=== PATIENT | male | born 1965 | race Caucasian/White ===

== ENCOUNTER 2018-08-17 08:12 | Observation (INO) | payer OTHER ==
[2018-08-17] MEDS ORDERED: LR 1,000 ML IV ONE (08:26)
[2018-08-17] MEDS ORDERED: LIDOCAINE 1% 300 MG/30 ML SDV ONE (08:52)
[2018-08-17] MEDS ORDERED: BUPIVACAINE 0.5% 30 ML SDV ONE (08:53)
[2018-08-17] MEDS ORDERED: MIDAZOLAM 2 MG/2 ML VIAL IVP ONE (09:06)
--- NOTE | 2018-08-17 09:14 | PDANEPAE ---
ANE Past Medical History - Cardiovascular History Hx Hypertension: No Hx Arrhythmias: No Hx Chest Pain: No Hx Coronary Artery / Peripheral Vascular Disease: No Hx CHF / Valvular Disease: No Hx Palpitations: No - Pulmonary History Hx COPD: No Hx Asthma/Reactive Airway Disease: No Hx Recent Upper Respiratory Infection: No Hx Oxygen in Use at Home: No Hx Sleep Apnea: No Sleep Apnea Screening Result - Last Documented: Negative - Neurologic History Hx Cerebrovascular Accident: No Hx Seizures: No Hx Dementia: No - Endocrine History Hx Diabetes: No Hypothyroid: No Hyperthyroid: No - Renal History Hx Renal Disorders: No - Liver History Hx Hepatic Disorders: No - Neurological & Psychiatric Hx Hx Neurological and Psychiatric Disorders: Yes Neurological / Psychiatric History Comment: hx of depression 10 yrs ago when brother from cancer - Cancer History Hx Cancer: No - Congenital Disorder History Hx Congenital Disorders: No - GI History Hx Gastrointestinal Disorders: No - Other Health History Other Health History: wears glasses - Chronic Pain History Chronic Pain: No - Surgical History Prior Surgeries: n/a ANE Review of Systems Review of Systems: - Exercise capacity METS (RN): 4 METS ANE Patient History - Allergies Allergies/Adverse Reactions: No Known Allergies Allergy (Verified 08/16/18 16:58) - Home Medications Home Medications: NK [No Known Home Meds] 08/11/18 [Last Taken Unknown] - NPO status NPO Since - Liquids (Date): 08/17/18 NPO Since - Liquids (Time): 01:00 NPO Since - Solids (Date): 08/16/18 NPO Since - Solids (Time): 20:00 - Smoking Hx Smoking Status: Former smoker - Family Anes Hx Family Hx Anesthesia Complications: unknown ANE Labs/Vital Signs - Vital Signs Blood Pressure: 154/113 Heart Rate: 67 Respiratory Rate: 14 O2 Sat (%): 96 Height: 182.88 cm Weight: 90.718 kg ANE Physical Exam - Airway Neck exam: FROM Mallampati Score: Class 1 Mouth exam: normal dental/mouth exam - Pulmonary Pulmonary: no respiratory distress - Cardiovascular Cardiovascular: regular rate and rhythym - ASA Status ASA Status: I ANE Anesthesia Plan Anesthesia Plan: GA w LMA
--- NOTE | 2018-08-17 09:45 | PDHPUP ---
History & Physical Update H&P update statement: This history and physical update is based on an assessment of the patient which was completed after admission or registration (within 24 hours), but prior to the surgery/procedure. H&P update: H&P reviewed & patient examined, no change in patient's condition since H&P completed
[2018-08-17] MEDS ORDERED: HYDROCODONE/APAP 5/325 TAB PO PRN (09:46)
[2018-08-17] MEDS ORDERED: ONDANSETRON 4 MG/2 ML VIAL IVP PRN (09:46)
[2018-08-17] MEDS ORDERED: TEMAZEPAM 15 MG CAP PO PRN (09:46)
--- NOTE | 2018-08-17 09:46 | POSTOPPROG ---
Post Op Note Date of Operation: 08/17/18 Surgeon: Truong Chow Technical Director: none Anesthesiologist: Luciescjudson Anesthesia: LMA Pre-op Diagnosis: Umbilical hernia Post-op Diagnosis: same Procedure: Open repair with mesh Findings: 2.5 cm defect Inf/Abcess present in the surg proc area at time of surgery?: No EBL: Minimal Specimen(s): none
[2018-08-17] MEDS ORDERED: PROPOFOL 200 MG/20 ML VIAL ONE ×2 (09:48)
[2018-08-17] MEDS ORDERED: fentaNYL 250 MCG/5 ML INJ ONE (09:48)
[2018-08-17] MEDS ORDERED: LIDOCAINE 2% 5 ML SDV ONE (09:48)
[2018-08-17] MEDS ORDERED: LR 1,000 ML IV SCH (10:00)
[2018-08-17] MEDS ORDERED: KETOROLAC 30 MG/1 ML SDV ONE (10:53)
[2018-08-17] MEDS ORDERED: ONDANSETRON 4 MG/2 ML VIAL ONE (10:53)
[2018-08-17] MEDS ORDERED: DEXAMETHASONE 4 MG/ML VIAL ONE (10:53)
[2018-08-17] MEDS ORDERED: PROMETHAZINE HCL 25 MG/ML INJ IVP PRN (10:55)
[2018-08-17] MEDS ORDERED: oxyCODONE IR 5 MG TAB PO PRN (10:55)
[2018-08-17] MEDS ORDERED: fentaNYL 100 MCG/2 ML INJ IVP PRN (10:55)
[2018-08-17] MEDS ORDERED: NALOXONE HCL 0.4 MG/ML INJ IVP PRN (10:55)
--- NOTE | 2018-08-17 10:55 | POSTANESTH ---
Post Anesthetic Evaluation Cardiovascular Status: Normal, Stable Respiratory Status: Normal, Stable Level of Consciousness/Mental Status: Mildly Sleepy, Arousable Pain Control: Adequate, Prn Tx Ordered Nausea/Vomiting Control: Adequate, Prn Tx Ordered Complications Possibly Related to Anesthesia: None Noted
[2018-08-17] MEDS: KETOROLAC 15 MG/1 ML SDV IVP SCH ×3 (13:15→23:01)
--- NOTE | 2018-08-17 13:57 | GOP ---
DATE OF OPERATION: SURGEON: Truong Chow MD ANESTHESIOLOGIST: Dr. Murphy. PREOPERATIVE DIAGNOSIS: Umbilical hernia. POSTOPERATIVE DIAGNOSIS: Incarcerated umbilical hernia. PROCEDURE PERFORMED: Open umbilical hernia repair with mesh placement, 4.3 cm Ventralex hernia patch . FINDINGS: That of a 2.5 cm defect. ESTIMATED BLOOD LOSS: Less than 10 mL. INDICATIONS: This is a 52-year-old gentleman, who presents to the hospital for elective repair of sy mptomatic umbilical hernia. DESCRIPTION OF PROCEDURE: The patient was brought into the operating room. After induction of gener al LMA anesthesia in the supine position, his abdomen was prepped with chlorhexidine and draped steri chip. A time-out procedure was then performed according to institutional standards. Local anestheti c was infused in the skin and subcutaneous tissues of the umbilicus. An infraumbilical incision was made in a curvilinear fashion. This was deepened with electrocautery. The hernia was identified and the attachments to the umbilicus and the tissue were taken down with sharp and electrocautery dissection. After circumferentially clearing the fascia above and below the defect, an area was allowed for landing of the mesh 2 cm above and below the linear closure. The me sh was placed in, in a parachute technique with 0 Ethibond suture, and the fascia was reapproximated with 3 [id number] sutures. After ensuring a tension-free closure, hemostasis, needle, instrumen t and sponge counts were assured to be correct, the wound was closed in a layered fashion, reattachin g the umbilicus to the fascia and closing the wound using 3-0 Vicryl and 4-0 Monocryl. Dermabond was applied. The patient was awakened. LMA was removed. He was taken to the recovery room in stable c ondition with no immediate complications. COMPLICATIONS: None. /[id number]/MODL
[2018-08-18] MEDS: KETOROLAC 15 MG/1 ML SDV IVP SCH ×2 (05:20→11:09)
[2018-08-18 07:18] VITALS: BP 132/93
== END 2018-08-18 13:25 | disposition home or self-care (01) ==
LOC: F3N 08:12 → F3E 11:54
PROVIDERS: ADMIT Surgery; ATTEND Surgery
PROC: 0WUF0JZ Supplement Abdominal Wall with Synthetic Substitute, Open Approach (ICD-10-PCS; principal; 2018-08-17 09:30)
DX: K42.9 Umbilical hernia without obstruction or gangrene (principal)
CPT/HCPCS: 49585; G0378; C1781; J1100; J1885; J2250; J2405; J2704; J3010

== ENCOUNTER 2018-09-03 00:33 | Emergency (ER) | payer OTHER ==
[2018-09-03] MEDS ORDERED: VANCOMYCIN 1.5 GM in D5W 250 ML IV ONE (00:54)
[2018-09-03] MEDS ORDERED: NS 1,000 ML IV ONE (00:54)
--- NOTE | 2018-09-03 01:05 | EDPHY ---
H & P Stated Complaint: RECENT HERNIA SURGERY KOLE NOW WITH PAIN REDNESS AND SWELLING Time Seen by Provider: 09/03/18 00:40 HPI/ROS: HPI The patient presents with abdominal pain and redness. He is status post open ventral hernia repair with mesh by Dr. Chow performed on August 17. This was uncomplicated. Over the course of the last week he has had intermittent mild subjective fevers, sensation of abdominal fullness. 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 He drove across several bumpy roads and noticed that his abdomen was hurting him a bit. This morning, he noticed some redness around his belly button which progressed throughout the day today. He came directly to the ER from the airport. He does not have any nausea or vomiting, difficulty having a bowel movement or vomiting. REVIEW OF SYSTEMS 10 systems were reviewed and negative with the exception of the elements mentioned in the history of present illness. PMHx: Ventral hernia repair as above Soc Hx: PHYSICAL General Appearance: Alert, no distress Eyes: Pupils equal and round no pallor or injection ENT, Mouth: Mucous membranes moist Respiratory: There are no retractions, lungs are clear to auscultation Cardiovascular: Regular rate and rhythm Gastrointestinal: Umbilicus is deeply erythematous with some whitish fluid draining from center, there is a large amount of surrounding erythema, warmth, tenderness Neurological: A&O, moves all extremities Skin: Warm and dry, no rashes Musculoskeletal: Neck is supple non tender Extremities: symmetrical, full range of motion Psychiatric: Patient is oriented X 3, there is no agitation Source: Patient Exam Limitations: No limitations - Personal History Current Tetanus/Diphtheria Vaccine: Yes Current Tetanus Diphtheria and Acellular Pertussis (TDAP): Yes - Medical/Surgical History Hx Asthma: No Hx Chronic Respiratory Disease: No Hx Diabetes: No Hx Cardiac Disease: No Hx Renal Disease: No Hx Cirrhosis: No Hx Alcoholism: No Hx HIV/AIDS: No Hx Splenectomy or Spleen Trauma: No Other PMH: HERNIA - Social History Smoking Status: Former smoker Constitutional: Initial Vital Signs Temperature (C) 37.2 C 09/03/18 00:35 Heart Rate 92 09/03/18 00:35 Respiratory Rate 18 09/03/18 00:35 Blood Pressure 156/94 H 09/03/18 00:35 O2 Sat (%) 97 09/03/18 00:35 O2 Delivery Mode Room Air Allergies/Adverse Reactions: No Known Allergies Allergy (Verified 09/03/18 00:39) Home Medications: Medication Instructions Recorded Amoxicillin/Clavulanate Pot 875 mg PO BID #14 tab 09/03/18 [Augmentin 875 MG TAB (*)] Medical Decision Making - Diagnostics Imaging Results: CT abdomen pelvis with IV contrast demonstrates a peripherally enhancing fluid collection extending from the skin surface at the umbilicus into the abdominal cavity 5.1 x 4.5 x 4.6 cm with adjacent fat stranding consistent with abscess. Mild edema of the intra-abdominal cavity. Interpreted by direct Radiology. Imaging: I viewed and interpreted images myself Differential Diagnosis: 52-year-old man status post ventral hernia repair about 2 and half weeks ago presents with abdominal redness, tenderness, subjective fevers at home. Differential diagnosis includes abdominal wall cellulitis, postoperative abscess , postoperative hematoma. Plan for IV fluids, IV antibiotics, basic labs, blood culture, CT scan abdomen pelvis. Labs demonstrated leukocytosis. CT scan demonstrated intra-abdominal abscess. I consulted with Dr. Chow the on-call general surgeon who came to the emergency department to see the patient. He performed a bedside incision and drainage and placed a drain. The patient will be discharged with Augmentin and will have follow-up tomorrow in their clinic. He is happy with this plan. - Data Points Laboratory Results: Laboratory Results 09/03/18 01:05 09/03/18 01:05 09/03/18 09/03/18 01:05 01:05 WBC 13.69 10^3/uL H 10^3/uL (3.80-9.50) RBC 4.74 10^6/uL 10^6/uL (4.40-6.38) Hgb 14.1 g/dL g/dL (13.7-17.5) Hct 42.3 % % (40.0-51.0) MCV 89.2 fL fL (81.5-99.8) MCH 29.7 pg pg (27.9-34.1) MCHC 33.3 g/dL g/dL (32.4-36.7) RDW 11.7 % % (11.5-15.2) Plt Count 284 10^3/uL 10^3/uL (150-400) MPV 11.1 fL fL (8.7-11.7) Neut % (Auto) 75.3 % H % (39.3-74.2) Lymph % (Auto) 12.6 % L % (15.0-45.0) [place] % (Auto) 11.0 % % (4.5-13.0) Eos % (Auto) 0.4 % L % (0.6-7.6) Baso % (Auto) 0.4 % % (0.3-1.7) Nucleat RBC Rel Count 0.0 % % (0.0-0.2) Absolute Neuts (auto) 10.32 10^3/uL H 10^3/uL (1.70-6.50) Absolute Lymphs (auto) 1.73 10^3/uL 10^3/uL (1.00-3.00) Absolute Monos (auto) 1.50 10^3/uL H 10^3/uL (0.30-0.80) Absolute Eos (auto) 0.05 10^3/uL 10^3/uL (0.03-0.40) Absolute Basos (auto) 0.05 10^3/uL 10^3/uL (0.02-0.10) Absolute Nucleated RBC 0.00 10^3/uL 10^3/uL (0-0.01) Immature Gran % 0.3 % % (0.0-1.1) Immature Gran # 0.04 10^3/uL 10^3/uL (0.00-0.10) Sodium 137 mEq/L mEq/L (135-145) Potassium 4.4 mEq/L mEq/L (3.5-5.2) Chloride 102 mEq/L mEq/L (97-110) Carbon Dioxide 28 mEq/l mEq/l (22-31) Anion Gap 7 mEq/L mEq/L (6-14) BUN 14 mg/dL mg/dL (7-23) Creatinine 0.8 mg/dL mg/dL (0.7-1.3) Estimated GFR > 60 Glucose 118 mg/dL H mg/dL (70-100) Calcium 9.2 mg/dL mg/dL (8.5-10.4) Total Bilirubin 0.8 mg/dL mg/dL (0.1-1.4) AST 19 IU/L IU/L (17-59) ALT 35 IU/L IU/L (21-72) Alkaline Phosphatase 128 IU/L H IU/L (38-126) Total Protein 7.0 g/dL g/dL (6.3-8.2) Albumin 4.2 g/dL g/dL (3.5-5.0) Medications Given: Discontinued Medications Amoxicillin/Clavulanate Potassium (Augmentin 875mg) 875 mg PO EDNOW ONE PRN Reason: Protocol Stop: 09/03/18 03:23 Last Admin: 09/03/18 03:31 Dose: 875 mg Sodium Chloride (Ns) 1,000 mls @ 0 mls/hr IV EDNOW ONE; Wide Open PRN Reason: Protocol Stop: 09/03/18 00:55 Last Admin: 09/03/18 01:12 Dose: 1,000 mls Vancomycin HCl 1.5 gm/ (Dextrose) 250 mls @ 166.67 mls/hr IV EDNOW ONE PRN Reason: Protocol Stop: 09/03/18 02:23 Last Admin: 09/03/18 01:32 Dose: 250 mls Ketorolac Tromethamine (Toradol) 30 mg IVP EDNOW ONE Stop: 09/03/18 03:07 Last Admin: 09/03/18 03:07 Dose: 30 mg Departure - Departure Disposition: Home, Routine, Self-Care Clinical Impression: Surgical site infection, Abdominal wall cellulitis Condition: Good Instructions: Wound Infection (ED) Additional Instructions: Please take the antibiotic as prescribed. You can shower and use mild soap and water over the wound. Afterwards, cover the wound with a large bandage. If your worse in any way, you should return to the emergency department immediately. Otherwise please call your surgeon's office on Tuesday morning to arrange for follow-up appointment. Referrals: Aguila Saul [Primary Care Provider] - As per Instructions Truong Chow MD [Medical Doctor] - As per Instructions Prescriptions: Amoxicillin/Clavulanate Pot [Augmentin 875 MG TAB (*)] 875 mg PO BID #14 tab
[2018-09-03 01:31] LABS: PLATELET COUNT 284 10^3/uL (150-400)
[2018-09-03] MEDS ORDERED: IOHEXOL 300 mgI/ML (OMNIPAQUE) 150 ML BTL IV ONE (02:00)
[2018-09-03 02:51] VITALS: BP 138/86
[2018-09-03] MEDS ORDERED: KETOROLAC 30 MG/1 ML SDV ONE (03:02)
[2018-09-03] MEDS ORDERED: KETOROLAC 30 MG/1 ML SDV IVP ONE (03:06)
[2018-09-03] MEDS ORDERED: AMOXICILLIN/CLAVULANATE POT 875/125 MG TAB PO ONE (03:22)
--- NOTE | 2018-09-03 03:48 | GCON ---
[f rep st] CONSULTATION DATE OF CONSULTATION: 09/03/2018 REASON FOR EVALUATION: Umbilical abscess. REQUESTING PHYSICIAN: Dayanna Meléndez MD. HISTORY OF PRESENT ILLNESS: 52-year-old male status post open umbilical herniorrhaphy with Ventralex mesh on August 17, 2018. He had initial unremarkable postoperative course. He had some swelling in his umbilicus last Tuesday without associated redness or fevers. 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 No fevers or chills. No other specific concerns. CT imaging was ordered by the ED physician disclosing a large umbilical fluid collection. PAST MEDICAL HISTORY: None. PAST SURGICAL HISTORY: Umbilical herniorrhaphy. MEDICATIONS: None. ALLERGIES: No known drug allergies. SOCIAL: Noncontributory. 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 PHYSICAL EXAMINATION: VITAL SIGNS: Temperature 37, blood pressure 136/86, pulse 86, respirations 16. GENERAL: Patient is alert, appropriate, comfortable. Sunburned in appearance. HEART: Regular. LUNGS: Clear. ABDOMEN: Exquisite periumbilical tenderness with calor and erythema, with a tense umbilical abscess. EXTREMITIES: Unremarkable. PROCEDURE: The wound was anesthetized with 1% lidocaine. The incision was partially opened allowing for evacuation of a large quantity of purulence. A quarter-inch Cerulean drain was placed in the cavity and secured with 3-0 nylon sutures. IMPRESSION: Umbilical abscess status post umbilical herniorrhaphy. PLAN: Abscess has been adequately drained at bedside. Intravenous antibiotics were administered in the emergency room. He will complete a course of p.o. antibiotics. He will be seen in followup in office on Tuesday, assuming continued resolution, else will see back later today. We discussed the potential for mesh infection and role for explantation as a potential possibility as well. Wound care instructions were explained prior to leaving. /[id number]/MODL MTDD
== END 2018-09-03 03:36 | disposition home or self-care (01) ==
PROC: 0H97X0Z Drainage of Abdomen Skin with Drainage Device, External Approach (ICD-10-PCS; principal; 2018-09-03)
DX: T81.41XA Infection following a procedure, superficial incisional surgical site, initial encounter (principal); L02.211 Cutaneous abscess of abdominal wall
CPT/HCPCS: 96365; J1885; J3370; Q9967

== ENCOUNTER 2018-10-26 12:09 | Emergency (ER) | payer OTHER ==
[2018-10-26] MEDS ORDERED: NS 1,000 ML IV ONE ×2 (13:28)
--- NOTE | 2018-10-26 13:36 | EDPHY ---
H & P Time Seen by Provider: 10/26/18 12:59 HPI/ROS: HPI Bilateral forearm pain. 52-year-old male by private vehicle. 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 He reports that back in August he had a hernia surgery. This became infected. He has subsequently been on antibiotics for the last 8 weeks. Most recently he finished a 2 week course of cefuroxime on Tuesday. He presents to the emergency department with complaint of bilateral forearm pain. More so on the dorsal ulnar aspects of both forearms. He describes this as symmetrical. He reports that on Tuesday he was down in [place] if issue eating a car race. He was waving a flag and notice the discomfort on his way back from [place]. The discomfort has become persistently worse. He denies any history of trauma. No shortness of breath. Denies any asymmetric swelling. He also explains to me that about a week ago he was working on his truck and was bending down squatting and then standing up repeatedly. He reports after this he was unusually sore in both of his thighs for at least several days. Denies any dark colored urine. States that he did have some increased frequency with urination last night. ROS: Constitutional: No fever, no chills. As above. Eyes: No discharge. No changes in vision. ENT: No sore throat. No nasal congestion or rhinorrhea. Respiratory: No cough. No shortness of breath. Cardiac: No chest pain, no palpitations. Gastrointestinal: No abdominal pain, no vomiting, no diarrhea. Genitourinary: No hematuria. No dysuria. As above. Musculoskeletal: No back pain. No neck pain. As above. Skin: No rashes. Sunburn. Neurological: No headache. No focal weakness or altered sensation. Past medical history: Her a surgery. Otherwise no significant past medical history. 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 Drinks alcohol occasionally. No IV drugs or street drugs. Here by himself. Nonsmoker. Physical Exam: General Appearance: Alert, no distress. This patient is responding to questions appropriately and in full sentences. This patient appears well- hydrated and well-nourished. Eyes: Pupils equal and round no pallor or injection. No lid edema, erythema or injection. ENT, Mouth: Mucous membranes are mildly dry. Neurological: Motor sensory function is grossly intact. Cranial nerves are normal. Gait is normal. Skin: Warm and dry, no rashes. Musculoskeletal: Examination of both forms is significant for some tenderness specifically on palpation of the bilateral extensor carpi ulnaris musculature. The muscle compartments and both forearms are soft. Both his upper extremities are neurovascularly intact. There is no asymmetric swelling suggestive of DVT. Other than some mild sunburn on both forearms no rash. No associated ecchymosis. All joints in the bilateral upper extremities range without any significant pain or impingement. No other tenderness on palpation involving the long bones wrists and hands of the bilateral upper extremities. Extremities are symmetrical except noted. Psychiatric: No agitation. No depression. Database: EKG: Imaging: Procedures: Emergency department course: Triage vital signs reviewed. He is mildly hypertensive. Vital signs are otherwise normal. He is afebrile. Patient's presentation is consistent with post exercised induced muscle soreness. Of concern is possible rhabdomyolysis. CK, cannabis history for renal function and urinalysis to be evaluated. IV was placed. He will be started on IV normal saline with 1-2 L to be given over the next 1-2 hours. 3:40 p.m., the patient was re-evaluated, currently resting comfortably. His vital signs are unremarkable. He is feeling better. Results of chemistry panel are unremarkable. He was given a 1 time dose of IV Toradol for his forearm pain. He has no contraindications to NSAIDs. Creatinine is normal today. He was up and ambulatory to the bathroom to urinate. Results of his blood work and urinalysis discussed with him. He had some white cells in his urine. He denies any urinary tract infection symptoms. I have ordered a culture. He has not been febrile. Antibiotics will be held pending culture results. I discussed follow-up to retrieve his urine culture results. He feels comfortable going home at this time. I feel as form pain is likely secondary to an overuse syndrome with muscle strain. He feels comfortable being discharged. Follow-up and return to emergency department precautions reviewed with him. All of his questions were answered. He was discharged from the emergency department in good condition. Differential Diagnosis: The differential diagnosis on this patient includes but is not limited to myalgias secondary to overuse. Rhabdomyolysis, DVT, fracture, subluxation, dislocation, compartment syndrome unlikely. This represents a partial list of diagnoses considered. These considerations are based on history, physical exam , past history, reassessment and diagnostic testing. Smoking Status: Former smoker Constitutional: Initial Vital Signs Temperature (C) 36.9 C 10/26/18 12:15 Heart Rate 90 10/26/18 12:15 Respiratory Rate 18 10/26/18 12:15 Blood Pressure 158/89 H 10/26/18 12:15 O2 Sat (%) 96 10/26/18 12:15 O2 Delivery Mode Room Air Allergies/Adverse Reactions: No Known Allergies Allergy (Verified 10/26/18 12:14) Home Medications: Medication Instructions Recorded Oxycodone HCl 10/26/18 Medical Decision Making - Data Points Laboratory Results: Laboratory Results 10/26/18 14:00 10/26/18 10/26/18 15:35 14:00 Sodium 138 mEq/L mEq/L (135-145) Potassium 4.5 mEq/L mEq/L (3.5-5.2) Chloride 101 mEq/L mEq/L (97-110) Carbon Dioxide 24 mEq/l mEq/l (22-31) Anion Gap 13 mEq/L mEq/L (6-14) BUN 14 mg/dL mg/dL (7-23) Creatinine 0.8 mg/dL mg/dL (0.7-1.3) Estimated GFR > 60 Glucose 95 mg/dL mg/dL (70-100) Calcium 9.9 mg/dL mg/dL (8.5-10.4) Creatine Kinase 63 IU/L IU/L (0-224) Urine Color YELLOW Urine Appearance CLEAR Urine pH 7.0 (5.0-7.5) Ur Specific [place] 1.012 (1.002-1.030) Urine Protein NEGATIVE (NEGATIVE) Urine Ketones 1+ H (NEGATIVE) Urine Blood NEGATIVE (NEGATIVE) Urine Nitrate NEGATIVE (NEGATIVE) Urine Bilirubin NEGATIVE (NEGATIVE) Urine Urobilinogen NEGATIVE EU EU (0.2-1.0) Ur Leukocyte Esterase 1+ H (NEGATIVE) Urine RBC 1-3 /hpf /hpf (0-3) Urine WBC 10-15 /hpf H /hpf (0-3) Ur Epithelial Cells TRACE /lpf /lpf (NONE-1+) Urine Bacteria TRACE /hpf H /hpf (NONE SEEN) Urine Glucose NEGATIVE (NEGATIVE) Medications Given: Discontinued Medications Sodium Chloride (Ns) 1,000 mls @ 0 mls/hr IV EDNOW ONE; Wide Open PRN Reason: Protocol Stop: 10/26/18 13:29 Last Admin: 10/26/18 14:57 Dose: 1,000 mls Sodium Chloride (Ns) 1,000 mls @ 0 mls/hr IV EDNOW ONE; Wide Open PRN Reason: Protocol Stop: 10/26/18 13:29 Last Admin: 10/26/18 14:57 Dose: 1,000 mls Ketorolac Tromethamine (Toradol) 30 mg IVP EDNOW ONE Stop: 10/26/18 15:29 Last Admin: 10/26/18 15:35 Dose: 30 mg Departure - Departure Disposition: Home, Routine, Self-Care Clinical Impression: Muscle strain of forearm Condition: Good Instructions: Muscle Strain (ED) Additional Instructions: Read and follow provided instructions. Follow-up with your primary care physician in 2-3 days for re-evaluation if not improving. Keep yourself well hydrated. Drink plenty of fluids. Urinalysis had a few white cells in it, a nonspecific marker of inflammation. A urine culture has been ordered. You will be notified of this grows out a bacteria and we will start you on an antibiotic. Return to the emergency department for worsening symptoms, pain, swelling, discoloration, fever or other serious concerns. Referrals: Aguila Saul [Primary Care Provider] - As per Instructions
[2018-10-26 14:38] LABS: CREATINE KINASE 63 IU/L (0-224)
[2018-10-26] MEDS ORDERED: KETOROLAC 30 MG/1 ML SDV IVP ONE (15:28)
[2018-10-26 16:20] VITALS: BP 145/96
== END 2018-10-26 16:34 | disposition home or self-care (01) ==
DX: S56.811A Strain of other muscles, fascia and tendons at forearm level, right arm, initial encounter (principal); S56.812A Strain of other muscles, fascia and tendons at forearm level, left arm, initial encounter; E86.9 Volume depletion, unspecified; X58.XXXA Exposure to other specified factors, initial encounter; Y99.9 Unspecified external cause status
CPT/HCPCS: 96374; J1885

== ENCOUNTER 2018-11-02 13:52 | Observation (INO) | payer OTHER ==
[2018-11-02] MEDS ORDERED: ceFAZolin 2 GM/DEXTROSE 100 ML IV ONE (14:01)
[2018-11-02] MEDS ORDERED: LR 1,000 ML IV ONE (14:02)
--- NOTE | 2018-11-02 15:09 | PDHPUP ---
History & Physical Update H&P update statement: This history and physical update is based on an assessment of the patient which was completed after admission or registration (within 24 hours), but prior to the surgery/procedure. H&P update: H&P reviewed & patient examined, changes noted (infected after abx done. will excise mesh)
[2018-11-02] MEDS ORDERED: BUPIVACAINE 0.5% 30 ML SDV ONE (15:29)
--- NOTE | 2018-11-02 15:49 | POSTANESTH ---
Post Anesthetic Evaluation Cardiovascular Status: Normal, Stable, Similar to Pre-Op Cond (Diastolic still high at 97 mm Hg, similar to pre-op.) Respiratory Status: Normal, Stable Level of Consciousness/Mental Status: Can Participate in Eval, Alert and Oriented Pain Control: Adequate, Prn Tx Ordered Nausea/Vomiting Control: Adequate, Prn Tx Ordered Complications Possibly Related to Anesthesia: None Noted
--- NOTE | 2018-11-02 15:51 | PDANEPAE ---
ANE History of Present Illness 52 yo old male s/p ventral hernia repair with mesh now with infection. ANE Past Medical History - Cardiovascular History Hx Hypertension: No Hx Arrhythmias: No Hx Chest Pain: No Hx Coronary Artery / Peripheral Vascular Disease: No Hx CHF / Valvular Disease: No Hx Palpitations: No - Pulmonary History Hx COPD: No Hx Asthma/Reactive Airway Disease: No Hx Recent Upper Respiratory Infection: No Hx Oxygen in Use at Home: No Hx Sleep Apnea: No Sleep Apnea Screening Result - Last Documented: Negative - Neurologic History Hx Cerebrovascular Accident: No Hx Seizures: No Hx Dementia: No - Endocrine History Hx Diabetes: No Hypothyroid: No Hyperthyroid: No Obesity: no - Renal History Hx Renal Disorders: No - Liver History Hx Hepatic Disorders: No - Neurological & Psychiatric Hx Hx Neurological and Psychiatric Disorders: Yes Neurological / Psychiatric History Comment: hx of depression 10 yrs ago when brother from cancer - Cancer History Hx Cancer: No - Congenital Disorder History Hx Congenital Disorders: No - GI History Hx Gastrointestinal Disorders: No - Other Health History Other Health History: wears glasses - Chronic Pain History Chronic Pain: No - Surgical History Prior Surgeries: 08/17/18 open repair of umbilical hernia with Geraldo ANE Review of Systems Review of Systems: - Exercise capacity METS (RN): 4 METS - Systems Constitutional: Reports: no symptoms Cardiac: Reports: no symptoms Respiratory: Reports: no symptoms ANE Patient History - Allergies Allergies/Adverse Reactions: No Known Allergies Allergy (Verified 11/01/18 16:38) - Home Medications Home Medications: Cefuroxime 11/01/18 [Last Taken 11/02/18 07:00] - NPO status NPO Since - Liquids (Date): 11/02/18 NPO Since - Liquids (Time): 10:00 NPO Since - Solids (Date): 11/01/18 NPO Since - Solids (Time): 19:00 - Anes Hx Anes Hx: no prior problems - Smoking Hx Smoking Status: Former smoker Marijuana use: No - Family Anes Hx Family Anes Hx: neg - N/A Family Hx Anesthesia Complications: unknown ANE Labs/Vital Signs - Vital Signs Blood Pressure: 144/97 Heart Rate: 74 Respiratory Rate: 18 O2 Sat (%): 94 Height: 182.88 cm Weight: 90.718 kg ANE Physical Exam - Airway Neck exam: FROM Mallampati Score: Class 2 Mouth exam: normal dental/mouth exam - Pulmonary Pulmonary: clear to auscultation - Cardiovascular Cardiovascular: regular rate and rhythym - ASA Status ASA Status: II ANE Anesthesia Plan Anesthesia Plan: GA w LMA
[2018-11-02] MEDS ORDERED: fentaNYL 100 MCG/2 ML INJ ONE ×2 (15:54→16:49)
[2018-11-02] MEDS ORDERED: LIDOCAINE 2% 5 ML SDV ONE (15:54)
[2018-11-02] MEDS ORDERED: DEXAMETHASONE 4 MG/ML VIAL ONE (15:54)
[2018-11-02] MEDS ORDERED: PROPOFOL 200 MG/20 ML VIAL ONE (15:54)
[2018-11-02] MEDS ORDERED: KETOROLAC 30 MG/1 ML SDV ONE (16:10)
[2018-11-02] MEDS ORDERED: NALOXONE HCL 0.4 MG/ML INJ IVP PRN (16:57)
[2018-11-02] MEDS ORDERED: fentaNYL 100 MCG/2 ML INJ IVP PRN (16:57)
[2018-11-02] MEDS ORDERED: LR 500 ML IV PRN (16:57)
[2018-11-02] MEDS ORDERED: DIAZEPAM 5 MG/ML 1 ML SYR IVP PRN (16:57)
[2018-11-02] MEDS ORDERED: ONDANSETRON 4 MG/2 ML VIAL IVP PRN ×2 (16:57→17:07)
[2018-11-02] MEDS ORDERED: HYDROCODONE/APAP 5/325 TAB PO PRN ×2 (16:57→17:07)
[2018-11-02] MEDS ORDERED: oxyCODONE IR 5 MG TAB PO PRN (16:57)
[2018-11-02] MEDS ORDERED: KETOROLAC 15 MG/1 ML SDV IVP PRN (17:07)
[2018-11-02] MEDS ORDERED: ONDANSETRON DISINTEGRATING 4 MG TAB PO PRN (17:07)
[2018-11-02] MEDS: IBUPROFEN 600 MG TAB PO SCH (20:18)
--- NOTE | 2018-11-02 22:29 | POSTOPPROG ---
Post Op Note Date of Operation: 11/02/18 Surgeon: Stormy White Anesthesiologist: diane Anesthesia: GET(General Endotracheal) Pre-op Diagnosis: chronic wound infection umbilicus Post-op Diagnosis: same Indication: umbilical hernia with chronic infection Procedure: exploration wound, remove umbilical mesh and umbilical hernia repair Findings: removed mesh, scant fluid Inf/Abcess present in the surg proc area at time of surgery?: Yes Depth: Organ Space EBL: Minimal Specimen(s): culture and mesh
[2018-11-03] MEDS: IBUPROFEN 600 MG TAB PO SCH (06:12)
[2018-11-03 08:19] VITALS: BP 119/93
--- NOTE | 2018-11-03 09:13 | SOAPPROG ---
SOAP Progress Note Assessment/Plan: Assessment/Plan: 52yo M POD#1 s/p umbilical wound exploration - removal of mesh and umbilical hernia repair. Cultures pending Dressing - hydrofera blue ready/transfer in umbilical wound, allevyn outer bandage. Change outer PRN Continue abx - IV while inpatient, transition to PO upon discharge Pain controlled Dispo: DC today. continue antibiotics as directed. Change outer dressing PRN. FU tuesday with Wen Tovar PA-C for packing change. Seen with dr. monsivais. S: feeling well this am. pain controlled. no fevers or chills. no new complaints O: laying in bed, comfortable, NAD No increased WOB Umbilical wound with improper dressing in place - taken down and wound evaluated. Umbilical wound packed with hydrofera blue ready, outer allevyn applied. No surrounding erythema Objective: Vital Signs Temp Pulse Resp BP Pulse Ox 36.6 C 74 18 119/93 H 92 11/03/18 08:00 11/03/18 08:00 11/03/18 08:00 11/03/18 08:00 11/03/18 08:00 Microbiology 11/02/18 16:11 Gram Stain - Final Abdomen - Tissue 11/02/18 16:11 Gram Stain - Final Abdomen - Tissue 11/02/18 16:11 Gram Stain - Final Abdomen - Eswab 11/02/18 11/03/18 11/04/18 05:59 05:59 05:59 Intake Total 750 Output Total 460 Balance 290 ICD10 Worksheet Patient Problems: Problems Problem Status Onset Surgical site infection Acute - ICD10 Problem Qualifiers (1) Surgical site infection
--- NOTE | 2018-11-03 10:26 | GDS ---
[f rep st] DISCHARGE SUMMARY ADMITTING DIAGNOSIS: Umbilical hernia repair surgical site infection. SECONDARY DIAGNOSES: None. REASON FOR ADMISSION: A 52-year-old man who developed a surgical site infection after having an umbi lical hernia repair on August 18, 2018. He had delayed wound healing. He was admitted at this time for surgical intervention, pain control and observation. HOSPITAL COURSE: He was taken to the operating room by Dr. Stormy White on 11/02/2018, for wound expl oration. Cultures were obtained at the time of surgery. Debridement was performed. The previous me sh was fully excised and the umbilical hernia was primarily closed with suture. The wound was left o pen and packed with Hydrofera Blue Ready and absorptive outer bandage applied. He was admitted [facility] for pain control and observation. On postoperative day #1, his pain was well controlled with or al pain medication. He was tolerating regular diet, ambulating independently with full return of bow el function. He was ready for discharge home. DISCHARGE CONDITION: Being discharged home in stable condition. Pain is well controlled, tolerating regular diet, ambulating independently. DISCHARGE MEDICATIONS: Sent home with prescription for oxycodone. Instructed to resume home antibio tic, cefuroxime, until completed and may take ibuprofen as needed for pain. DISCHARGE INSTRUCTIONS AND FOLLOWUP: He will return to the clinic on Tuesday for a packing change. M ay change the outer bandage as needed. Continue antibiotics as directed. Call with any worsening sy mptoms, questions or concerns. /[id number]/MODL
--- NOTE | 2018-11-08 12:10 | GOP ---
[f rep st] OPERATIVE REPORT DATE OF OPERATION: 11/02/2018 SURGEON: Stormy White MD ANESTHESIA: General. ANESTHESIOLOGIST: Laurel Clifford MD. 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 PROCEDURE PERFORMED: Exploration umbilical wound with removal of mesh and umbilical hernia repair. FINDINGS: Scant fluid. Approximately 1 cm of the unhealthy tissue, and the mesh was not incorporate d at all. SPECIMENS: Included fluid for microbiology, tissue for microbiology, mesh for microbiology, and the mesh for gross permanent. ESTIMATED BLOOD LOSS: Minimal. INDICATIONS: The patient is a 52-year-old man who underwent umbilical hernia repair earlier this yea r. He developed an infection. He has been on several courses of antibiotics, but approximately 4 da ys after the antibiotics are discontinued the wound recurs. DESCRIPTION OF PROCEDURE: The patient was brought into the operating room, placed supine on the tabl e. General anesthesia was administered. I infiltrated all sites with 0.5% Marcaine prior to making incisions. I made an incision beneath the umbilicus. I had to extend this a little further than his previous incision in order to get adequate exposure. I carefully removed the umbilical stalk from t he tissue below. There was a scant amount of fluid, which I cultured. I then could see an area on t he left lateral portion as well as superior that had some tissue that appeared to be more slick, and I performed a curette of this area. The mesh was intra-abdominal. I was not able to adequately debr mera the biofilm inverted off the top to feel comfortable about leaving the mesh. I carefully opened the fascia sharply and encountered the mesh. I took a small sample of the mesh and submitted this fo r microbiology. I was able to remove the Ethibond sutures and remove the mesh completely. There was only omentum exposed below. The mesh was not incorporated. The mesh was submitted to Pathology for gross only. The wound was copiously irrigated with over a liter of fluid. I excised all devitalize d or questionable tissue. I was able to go back to healthy fascia. I, then, closed the fascia with 0 PDS. Hemostasis was achieved. I did not want to close the wound; so, I placed a piece of Hydrofer a Blue and an Allevyn in the subcutaneous space. He was awakened in the operating room, extubated, t ransferred to PACU in stable condition. /[id number]/MODL
== END 2018-11-03 11:30 | disposition home or self-care (01) ==
LOC: FSGY 13:52 → F3E 17:06
PROVIDERS: ADMIT Surgery; ATTEND Surgery
PROC: 0WQF0ZZ Repair Abdominal Wall, Open Approach (ICD-10-PCS; principal; 2018-11-02 15:45)
PROC: 0WPF0JZ Removal of Synthetic Substitute from Abdominal Wall, Open Approach (ICD-10-PCS; principal; 2018-11-02 15:45)
DX: T85.79XA Infection and inflammatory reaction due to other internal prosthetic devices, implants and grafts, initial encounter (principal)
CPT/HCPCS: 11008; 49585; G0378; J0690; J1100; J1885; J2704; J3010